=== PATIENT | male | born 1970 | race Two or more races ===

== ENCOUNTER 2020-05-30 17:21 | Emergency (ER) | payer SELFPAY ==
[~2020-05-30] VITALS: Ht 177.8 cm; Wt 95.3 kg
[2020-05-30 17:59] VITALS: BP 152/92
--- NOTE | 2020-05-30 18:17 | Emergency Room Report ---
History of Present Illness General Chief Complaint: Flu Like Symptoms Source: Patient Present Illness HPI 50 YO male presents to the ED c/o transient episode of feeling SOB and palpitations. Pt. reports he went for a walk to "get some fresh air" He states at one point he felt weak and had some changes in his vision as if he may pass out. Pt. denies syncope. He reports nausea. He denies vomiting. He denies fevers or chills. Patient reports he did feel slightly ill yesterday however earlier this morning he states he felt fine other than being hung over. Patient reports onset of his symptoms while laying down in bed/at rest. He denies pain/chest pain, paresthesias, sudden onset headache or dizziness. Patient reports that his symptoms have resolved at this time upon arrival here at the ED. Patient felt it was necessary to be evaluated. Denies smoking history denies significant past medical history.Denies significant personal or familial cardiac history. Pt. reports he did take 3 ASA this am for his hang over. Pt. reports previous hx of panic attacks. 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 Patient History Past Medical History: see triage record Past Surgical History: none Pertinent Family History: none Reviewed Nursing Documentation: PMH: Agreed; PSxH: Agreed Nursing Documentation-PMH Past Medical History: No Stated History Review of Systems All Other Systems: negative except mentioned in HPI Physical Exam Vital Signs Date Time Temp Pulse Resp B/P (MAP) Pulse Ox O2 Delivery O2 Flow Rate FiO2 05/30/20 17:42 98.6 81 18 152/92 (112) 98 Room Air Sp02 EP Interpretation: reviewed, normal General Appearance: no apparent distress, alert, GCS 15, non-toxic Head: normocephalic, atraumatic Eyes: bilateral eye normal inspection, bilateral eye PERRL ENT: hearing grossly normal, normal voice Neck: full range of motion Respiratory: chest non-tender, lungs clear, normal breath sounds, no respiratory distress, no accessory muscle use, no wheezing, speaking full sentences Cardiovascular #1: regular rate, rhythm, no edema Gastrointestinal: non tender, soft Musculoskeletal: normal range of motion, gait/station normal, non-tender Neurologic: alert, motor strength/tone normal, oriented x3, sensory intact, responsive, speech normal, normal gait, grossly normal, no focal defects Psychiatric: judgement/insight normal Lymphatic: no adenopathy Medical Decision Making PA Attestation Dr. Gomez is my supervising Physician whom patient management has been discussed with. Diagnostic Impression: Primary Impression: Shortness of breath Additional Impression: Heart palpitations ER Course 50 YO male presents to the ED c/o transient episode of feeling SOB and palpitations. Pt. reports he went for a walk to "get some fresh air" He states at one point he felt weak and had some changes in his vision as if he may pass out. Pt. denies syncope. He reports nausea. He denies vomiting. He denies fevers or chills. Patient reports he did feel slightly ill yesterday however earlier this morning he states he felt fine other than being hung over. Patient reports onset of his symptoms while laying down in bed/at rest. He denies pain/chest pain, paresthesias, sudden onset headache or dizziness. Patient reports that his symptoms have resolved at this time upon arrival here at the ED. Patient felt it was necessary to be evaluated. Denies smoking history d enies significant past medical history.Denies significant personal or familial cardiac history. Pt. reports he did take 3 ASA this am for his hang over. Pt. reports previous hx of panic attacks. Ddx considered but are not limited to [place], arrhythmia, hypokalemia, anxiety reaction. Vital signs: are WNL, pt. is afebrile. H&PE are most consistent with well-appearing nontoxic in appearance patient who is in no acute distress does not demonstrate been in respiratory distress. Patient is calm normal/stable vital signs. good cap refill and normal color skin. ORDERS: - EK NSR, no acute ST changes. ED INTERVENTIONS: -I do not identify an emergent condition at this time. With current presentation, pt. is stable for close outpatient follow up and conservative treatment. D/w pt. to return promptly to ED with worsening or new symptoms.- Pt. verbalizes' understanding and agreement with proposed treatment plan. DISCHARGE: At this time pt. is stable for d/c to home. Will provide printed patient care instructions, and any necessary prescriptions. Care plan and follow up instructions have been discussed with the patient prior to discharge. EKG Diagnostic Results Troponin ordered: No - no cardiac RF, hx of anxiety. normal EKG EKG Time: 18:08 Rate: normal - 75 bpm Rhythm: NSR ST Segments: no acute changes ASA given to the pt in ED: No PA Scribe Text This Interpretation was scribed by STEPHY Gómez. Last Vital Signs Date Time Temp Pulse Resp B/P (MAP) Pulse Ox O2 Delivery O2 Flow Rate FiO2 05/30/20 17:59 98.6 18 152/92 98 Room Air 05/30/20 17:59 81 Disposition: HOME, SELF-CARE Condition: Stable Referrals: [facility] Patient Instructions: Palpitations, [id number], Shortness of Breath, [id number] Additional Instructions: Take medications as directed. Follow up with a Primary Care Provider in 3-5 days, even if your symptoms have resolved. IF symptoms return Cardiology Evaluation is recommended. --Please review list of primary care clinics, if you do not already have a primary care provider Return sooner to ED if new symptoms occur, or current symptoms become worse. - Please note that this Emergency Department Report was dictated using [employer] form builder technology software, occasionally this can lead to erroneous entry secondary to interpretation by the dictation equipment. Vikki Gómez May 30, 2020 18:17
[2020-05-30 18:35] VITALS: BP 152/92
== END 2020-05-30 18:35 | disposition home or self-care (01) ==
LOC: EMR 18:00
DX: R06.02 Shortness of breath (principal); R00.2 Palpitations
CPT/HCPCS: 93005; 99282